=== PATIENT | female | born 1980 | race Caucasian/White ===

== ENCOUNTER 2017-06-01 18:29 | Inpatient (IN) | payer OTHER ==
[~2017-06-01] VITALS: Ht 162.6 cm; Wt 60.8 kg
[2017-06-01] MEDS ORDERED: MIRALAX 17 GM POWD.PACK PO PRN (20:45)
[2017-06-01] MEDS ORDERED: DICYCLOMINE HCL 20 MG TABLET PO PRN (20:45)
[2017-06-01] MEDS ORDERED: CLONIDINE HCL 0.1 MG TABLET PO PRN (20:45)
[2017-06-01] MEDS ORDERED: MAGNESIUM HYDROXIDE 30 ML LIQUID UDC PO PRN (20:45)
[2017-06-01] MEDS ORDERED: ONDANSETRON ODT 4 MG TAB.RAPDIS SL PRN (20:45)
[2017-06-01] MEDS ORDERED: ACETAMINOPHEN 325 MG TABLET PO PRN (20:45)
[2017-06-01] MEDS ORDERED: BUPRENORPHINE HCL 2 MG TAB.SUBL SL PRN (20:45)
[2017-06-01] MEDS ORDERED: ONDANSETRON 4 MG/2 ML VIAL IM PRN (20:45)
[2017-06-01] MEDS ORDERED: MAG HYDROX/AL HYDROX/SIMETH 30 ML LIQUID UDC PO PRN (20:45)
[2017-06-01] MEDS ORDERED: LOPERAMIDE HCL 2 MG CAPSULE PO PRN ×2 (20:45)
[2017-06-01 21:08] LABS: *URINE HCG, QUAL NEGATIVE (NEGATIVE)
[2017-06-01 21:25] LABS: *AMPHETAMINE, URINE POSITIVE (NEGATIVE); *BARBITURATE, URINE NEGATIVE (NEGATIVE); *CANNABINOID, URINE POSITIVE (NEGATIVE); *COCCAINE, URINE NEGATIVE (NEGATIVE); *OPIATE, URINE POSITIVE (NEGATIVE); *PHENCYCLIDINE SCREEN,URINE NEGATIVE (NEGATIVE)
[2017-06-01] MEDS ORDERED: ONDANSETRON ODT 4 MG TAB.RAPDIS ONE (21:25)
[2017-06-01] MEDS ORDERED: LORAZEPAM 1 MG TABLET ONE (21:25)
[2017-06-01] MEDS ORDERED: LORAZEPAM 1 MG TABLET PO ONE (21:45)
[2017-06-01] MEDS: diphenhydrAMINE 50 MG CAPSULE PO PRN (22:41)
[2017-06-01] MEDS ORDERED: diphenhydrAMINE 50 MG CAPSULE ONE (22:43)
[2017-06-02 08:00] VITALS: BP 107/78
[2017-06-02] MEDS: BUPRENORPHINE HCL 2 MG TAB.SUBL SL SCH ×3 (08:30→20:53)
[2017-06-02] MEDS: LORAZEPAM 1 MG TABLET PO PRN (08:36)
[2017-06-02] MEDS ORDERED: TUBERCULIN,PURIF.PROT.DERIV. 5 TU/0.1 ML TEST ID ONE (09:00)
[2017-06-02] MEDS ORDERED: NICOTINE POLACRILEX 4 MG GUM-PK OF TEN BC PRN (10:45)
[2017-06-02] MEDS ORDERED: NICOTINE 14 MG/24HR PATCH TD PRN (10:45)
[2017-06-02 12:00] VITALS: BP 119/69
[2017-06-02] MEDS: GABAPENTIN 300 MG CAPSULE PO SCH ×2 (14:46→20:53)
[2017-06-02] MEDS ORDERED: trintellix PO (15:10)
[2017-06-02 16:00] VITALS: BP 116/61
[2017-06-02] MEDS: METHOCARBAMOL 750 MG TABLET PO PRN (16:31)
[2017-06-02 20:00] VITALS: BP 116/62
[2017-06-02] MEDS: IBUPROFEN 600 MG TABLET PO PRN (21:35)
[2017-06-02] MEDS: HYDROXYZINE PAMOATE 25 MG CAPSULE PO PRN (21:35)
[2017-06-02] MEDS: diphenhydrAMINE 50 MG CAPSULE PO PRN (21:35)
[2017-06-03 08:00] VITALS: BP 112/62
[2017-06-03] MEDS: GABAPENTIN 300 MG CAPSULE PO SCH ×3 (08:48→20:54)
[2017-06-03] MEDS ORDERED: BUPRENORPHINE HCL 2 MG TAB.SUBL SL SCH (09:00)
[2017-06-03 12:00] VITALS: BP 110/58
[2017-06-03] MEDS: BUPRENORPHINE HCL 2 MG TAB.SUBL SL SCH ×2 (14:27→20:55)
[2017-06-03 16:00] VITALS: BP 96/55
[2017-06-03 20:00] VITALS: BP 106/60
[2017-06-03] MEDS: METHOCARBAMOL 750 MG TABLET PO PRN (20:54)
[2017-06-03] MEDS: HYDROXYZINE PAMOATE 25 MG CAPSULE PO PRN (20:55)
[2017-06-03] MEDS: diphenhydrAMINE 50 MG CAPSULE PO PRN (20:55)
[2017-06-03] MEDS: MUPIROCIN 2% OINT 22 GM TUBE NS SCH (20:57)
[2017-06-03] MEDS: CLONIDINE HCL 0.1 MG TABLET PO SCH (21:00)
[2017-06-04] VITALS: BP 108/70
[2017-06-04] MEDS: LORAZEPAM 1 MG TABLET PO PRN (01:36)
[2017-06-04 04:00] VITALS: BP 102/64
[2017-06-04 08:00] VITALS: BP 102/65
[2017-06-04] MEDS: GABAPENTIN 300 MG CAPSULE PO SCH ×3 (08:26→21:39)
[2017-06-04] MEDS: BUPRENORPHINE HCL 2 MG TAB.SUBL SL SCH ×3 (08:27→21:39)
[2017-06-04] MEDS: CLONIDINE HCL 0.1 MG TABLET PO SCH ×2 (08:29→21:41)
[2017-06-04] MEDS: MUPIROCIN 2% OINT 22 GM TUBE NS SCH ×2 (08:30→21:38)
[2017-06-04] MEDS ORDERED: BUPRENORPHINE HCL 2 MG TAB.SUBL SL PRN (11:15)
[2017-06-04 12:00] VITALS: BP_SYST 100; BP_SYST 146; BP_DIAS 60; BP_DIAS 83
[2017-06-04 16:00] VITALS: BP 101/59
[2017-06-04] MEDS: METHOCARBAMOL 750 MG TABLET PO PRN (18:16)
[2017-06-04] MEDS: IBUPROFEN 600 MG TABLET PO PRN (18:16)
[2017-06-04 20:00] VITALS: BP 104/70
[2017-06-04] MEDS: diphenhydrAMINE 50 MG CAPSULE PO PRN (21:39)
[2017-06-05] VITALS: BP 98/54
[2017-06-05 08:00] VITALS: BP 117/79
[2017-06-05] MEDS: BUPRENORPHINE HCL 2 MG TAB.SUBL SL SCH ×2 (08:33→21:32)
[2017-06-05] MEDS: GABAPENTIN 300 MG CAPSULE PO SCH ×3 (08:33→21:31)
[2017-06-05] MEDS: CLONIDINE HCL 0.1 MG TABLET PO SCH ×3 (08:33→21:32)
[2017-06-05] MEDS: MUPIROCIN 2% OINT 22 GM TUBE NS SCH ×2 (08:39→21:33)
[2017-06-05 12:00] VITALS: BP 93/44
[2017-06-05] MEDS: BACLOFEN 20 MG TABLET PO SCH ×2 (14:14→21:31)
[2017-06-05 16:00] VITALS: BP 90/60
[2017-06-05 20:00] VITALS: BP 103/55
[2017-06-05] MEDS ORDERED: MISCELLANEOUS MED XX SCH (21:00)
[2017-06-05] MEDS: HYDROXYZINE PAMOATE 25 MG CAPSULE PO PRN (21:31)
[2017-06-05] MEDS: diphenhydrAMINE 50 MG CAPSULE PO PRN (21:31)
[2017-06-06 04:00] VITALS: BP 102/58
[2017-06-06 08:00] VITALS: BP 101/54
[2017-06-06 08:45] VITALS: BP 99/55
[2017-06-06] MEDS ORDERED: BUPRENORPHINE HCL 2 MG TAB.SUBL SL SCH (09:00)
[2017-06-06] MEDS: MUPIROCIN 2% OINT 22 GM TUBE NS SCH ×2 (09:00→20:17)
[2017-06-06] MEDS: CLONIDINE HCL 0.1 MG TABLET PO SCH ×3 (09:00→20:43)
[2017-06-06] MEDS: GABAPENTIN 300 MG CAPSULE PO SCH ×3 (09:00→20:17)
[2017-06-06] MEDS: TRINTELLIX 5 MG PO SCH (09:01)
[2017-06-06] MEDS: BACLOFEN 20 MG TABLET PO SCH ×3 (09:01→20:17)
[2017-06-06 12:00] VITALS: BP 101/51
[2017-06-06] MEDS: HYDROXYZINE PAMOATE 25 MG CAPSULE PO PRN ×2 (15:28→20:17)
[2017-06-06 16:00] VITALS: BP 100/55
[2017-06-06 20:00] VITALS: BP 119/72
[2017-06-06] MEDS: diphenhydrAMINE 50 MG CAPSULE PO PRN (20:18)
[2017-06-06] MEDS ORDERED: DICY20TA28 PO (20:33)
[2017-06-06] MEDS ORDERED: IBUP-1955 PO (20:33)
[2017-06-06] MEDS ORDERED: GABA-534 PO (20:33)
[2017-06-06] MEDS ORDERED: DIPH50CA37 PO (20:33)
[2017-06-06] MEDS ORDERED: HYDR-3895 PO (20:33)
[2017-06-06] MEDS ORDERED: BACL20TA PO (20:33)
[2017-06-06] MEDS ORDERED: CLON0.1T14 PO (20:33)
[2017-06-07] VITALS: BP 99/54
[2017-06-07 04:00] VITALS: BP 96/57
[2017-06-07 08:00] VITALS: BP 90/51
[2017-06-07] MEDS: GABAPENTIN 300 MG CAPSULE PO SCH (08:20)
[2017-06-07] MEDS: MUPIROCIN 2% OINT 22 GM TUBE NS SCH (08:20)
[2017-06-07] MEDS: TRINTELLIX 5 MG PO SCH (08:20)
[2017-06-07] MEDS: BACLOFEN 20 MG TABLET PO SCH (08:20)
[2017-06-07 09:00] VITALS: BP 90/50
[2017-06-07] MEDS: CLONIDINE HCL 0.1 MG TABLET PO SCH (09:00)
== END 2017-06-07 09:35 | disposition other institution (70) | DRG 895 ==
LOC: SRC 20:06
PROVIDERS: ADMIT Internal Medicine; ATTEND Internal Medicine
PROC: HZ2ZZZZ Detoxification Services for Substance Abuse Treatment (ICD-10-PCS; principal; 2017-06-01)
PROC: HZ31ZZZ Individual Counseling for Substance Abuse Treatment, Behavioral (ICD-10-PCS; 2017-06-03)
DX: F11.23 Opioid dependence with withdrawal (principal); F12.20 Cannabis dependence, uncomplicated; F17.210 Nicotine dependence, cigarettes, uncomplicated; F41.9 Anxiety disorder, unspecified; G47.00 Insomnia, unspecified; Z22.322 Carrier or suspected carrier of Methicillin resistant Staphylococcus aureus; F32.9 Major depressive disorder, single episode, unspecified; F15.23 Other stimulant dependence with withdrawal; F13.10 Sedative, hypnotic or anxiolytic abuse, uncomplicated
CPT/HCPCS: 80307; 80324; 80346; 80349; 80361; 84703; 86580; A4663; Q0162; Q0163